=== PATIENT | male | born 1945 ===

== ENCOUNTER 2018-11-29 07:14 | Day surgery (SDC) | payer MEDICARE ==
[2018-11-29] MEDS ORDERED: Lactated Ringer's 500 ML IV ONE (07:36)
[2018-11-29 07:50] VITALS: BMI 33.6
[2018-11-29 08:04] VITALS: TEMP 97.6
[2018-11-29] MEDS ORDERED: Propofol 10 mg/ml Inj (20 ML) ONE (08:19)
[2018-11-29] MEDS ORDERED: Midazolam 2 MG/2 ML VIAL ONE (08:19)
[2018-11-29 09:44] VITALS: BP 121/68; PULSE 58; RESP 16; O2SAT 99
== END 2018-11-29 12:36 | disposition short-term general hospital (02) ==
LOC: H.ENDO 07:14
PROVIDERS: ATTEND Internal Medicine Gastroenterology
DX: Z12.11 Encounter for screening for malignant neoplasm of colon (principal); N40.0 Benign prostatic hyperplasia without lower urinary tract symptoms; I10 Essential (primary) hypertension; G47.33 Obstructive sleep apnea (adult) (pediatric); K64.8 Other hemorrhoids
CPT/HCPCS: 45378; J2001; J2250; J2704; J7120